=== PATIENT | male | born 1995 | race Caucasian/White ===

== ENCOUNTER 2018-05-09 12:55 | Emergency (ER) | payer OTHER, BC ==
--- NOTE | 2018-05-09 13:19 | ER Document Report ---
ED Medical Screen (RME) - General Chief Complaint: Heat Exposure Stated Complaint: HEAT EXHAUSTION Time Seen by Provider: 05/09/18 13:12 Notes: RAPID MEDICAL EVALUATION DISCLOSURE I have seen this patient as part of a Rapid Medical Evaluation and, if applicable, placed any initially appropriate orders. The patient will be seen and fully evaluated, including a full history and physical exam, by a provider ( in Main ED or Fast Track) when a room becomes available. 22-year-old male here with complaints of lightheadedness, extremity cramping, nausea, and "vision going out" that started about an hour ago. He had been outside trimming the [facility] with a weed [place] when he started to have these symptoms. He became very lightheaded and his vision started to go out on him and he felt like he was going to pass out so he laid down and states that he did not end up completely passing out. He has been trying to drink water all day. He has not yet urinated today and cannot tell me if his urine is an abnormal color. Currently, he feels normal. He received Zofran via EMS. EXAM CTAB RRR TRAVEL OUTSIDE OF THE [place] IN LAST 30 DAYS: No - Related Data Allergies/Adverse Reactions: No Known Allergies Allergy (Unverified 05/09/18 12:56) Past Medical History - Social History Chew tobacco use (# tins/day): - 5 Frequency of alcohol use: Every night Drug Abuse: None Renal/ Medical History: Denies: Hx Peritoneal Dialysis Physical Exam - Vital signs Vitals: Temp Pulse Resp BP Pulse Ox 98.0 F 70 20 103/84 100 05/09/18 13:03 05/09/18 13:03 05/09/18 13:05/09/18 13:03 05/09/18 13:03 Course - Vital Signs Vital signs: Temp Pulse Resp BP Pulse Ox 98.0 F 70 20 103/84 100 05/09/18 13:03 05/09/18 13:03 05/09/18 13:03 05/09/18 13:03 05/09/18 13:03
[2018-05-09 13:49] LABS: ABSOLUTE BASOPHILS # (AUTO) 0.1 10^3/uL (0.0-0.2); ABSOLUTE LYMPHOCYTES (AUTO) 2.2 10^3/uL (0.5-4.7); ABSOLUTE MONOCYTES (AUTO) 0.6 10^3/uL (0.1-1.4); BASOPHILS % (AUTO) 0.5 % (0-2); EOSINOPHILS % (AUTO) 0.4 % (0-6); HEMOGLOBIN 15.7 g/dL (13.5-17.0); LYMPHOCYTES % (AUTO) 20.4 % (13-45); MEAN CORPUSCULAR HGB CONC 34.2 g/dL (32.0-36.0); MEAN CORPUSCULAR VOLUME 91 fl (80-97); MONOCYTES % (AUTO) 5.7 % (3-13); PLATELET COUNT 264 10^3/uL (150-450); RED BLOOD COUNT 5.07 10^6/uL (4.35-5.55); RED CELL DISTRIBUTION WIDTH 13.2 % (11.5-14.0); TOTAL CELLS COUNTED % (AUTO) 100 %
[2018-05-09 13:58] LABS: APPEARANCE,URINE CLEAR; BILIRUBIN,URINE NEGATIVE (NEGATIVE); COLOR,URINE YELLOW; GLUCOSE, URINE NEGATIVE (NEGATIVE); KETONES,URINE NEGATIVE (NEGATIVE); LEUKOCYTE ESTERASE,URINE NEGATIVE (NEGATIVE); NITRITE,URINE NEGATIVE (NEGATIVE); PROTEIN,URINE NEGATIVE (NEGATIVE); URINE SPECIFIC GRAVITY 1.004; UROBILINOGEN,URINE NEGATIVE mg/dL (<2.0)
[2018-05-09 14:15] LABS: ALANINE AMINOTRANSFERASE 24 U/L (21-72); ALBUMIN 5.3 g/dL (3.5-5.0); ALKALINE PHOSPHATASE 89 U/L (38-126); ANION GAP 14 (5-19); ASPARTATE AMINO TRANSFERASE 31 U/L (17-59); BILIRUBIN,DIRECT 0.4 mg/dL (0.0-0.4); BLOOD UREA NITROGEN 13 mg/dL (7-20); CALCIUM 10.5 mg/dL (8.4-10.2); CARBON DIOXIDE 28 mmol/L (22-30); CHLORIDE 96 mmol/L (98-107); CREATINE KINASE 431 U/L (55-170); GLUCOSE 95 mg/dL (75-110); PHOSPHORUS 2.4 mg/dL (2.5-4.5); POTASSIUM 3.6 mmol/L (3.6-5.0); SODIUM 138.2 mmol/L (137-145); TOTAL PROTEIN 8.3 g/dL (6.3-8.2)
[2018-05-09] MEDS ORDERED: NORMAL SALINE 1000 ML 1,000 ML IV ONE (14:30)
--- NOTE | 2018-05-09 14:34 | ER Document Report ---
ED Heat Exposure - General Chief Complaint: Heat Exposure Stated Complaint: HEAT EXHAUSTION Time Seen by Provider: 05/09/18 13:12 Mode of Arrival: Medic Information source: Patient TRAVEL OUTSIDE OF THE [place] IN LAST 30 DAYS: No - HPI Patient complains to provider of: "I think I had heat exhaustion" Onset: Just prior to arrival Notes: Patient is here with complaints of feeling like he may have had heat exhaustion. The patient works outside doing [employer]. He states that he was working outside for about 4 hours today. He started to feel like he was going to pass out. He states that his vision got dark, but he never actually had a syncopal episode. When he started to feel like he was going to pass out, he laid down. He states that he felt numb everywhere and his muscles were cramping up. States that he now has some muscle pain in his arms. He denies taking any daily medications. He denies fever. He denies any chest pain or shortness of breath. He denies any blurred or loss vision. No headache. No unilateral numbness, tingling, weakness. He is not on blood thinning medications. He denies any drug use. He drinks approximately 3 beers a day. He denies any change in his urine. No dysuria or hematuria. No rash. He states that right now he feels significantly better and is actually ready to go home. His only complaint now is that his arms are sore. Nothing seems to make his symptoms better or worse. He denies any other complaints at this time. Patient denies any recent long trips or surgeries, leg swelling, history of DVT or PE, cancer. - Related Data Allergies/Adverse Reactions: No Known Allergies Allergy (Unverified 05/09/18 12:56) Past Medical History - Social History Smoking Status: Current Every Day Smoker Chew tobacco use (# tins/day): - 5 Frequency of alcohol use: Every night Drug Abuse: None Family History: Reviewed & Not Pertinent Patient has suicidal ideation: No Patient has homicidal ideation: No Renal/ Medical History: Denies: Hx Peritoneal Dialysis Review of Systems - Review of Systems -: Yes All other systems reviewed and negative Physical Exam - Vital signs Vitals: Temp Pulse Resp BP Pulse Ox 98.0 F 70 20 103/84 100 05/09/18 13:03 05/09/18 13:03 05/09/18 13:03 05/09/18 13:03 05/09/18 13:03 - Notes Notes: GENERAL: alert, cooperative, nontoxic, no distress. HEAD: normocephalic, atraumatic EYES: conjunctiva pink without discharge, no external redness or swelling. Pupils are equal, round, reactive to light. EARS: no external swelling, no external redness NOSE: atraumatic, no external swelling MOUTH/THROAT: mucous membranes moist and pink, posterior pharynx without erythema, swelling, exudate. No trismus or drooling. NECK: soft, supple, full range of motion, no meningismus. CHEST: no distress, lungs clear and equal throughout. No wheezing, rales, rhonchi. CARDIAC: regular rate and rhythm, no murmur, normal capillary refill, normal pulses. No peripheral edema noted. BACK: full range of motion, no CVA tenderness. EXTREMITIES: full range of motion of all extremities. No redness, no swelling. NEURO: alert and oriented x 3, cranial nerves II through XII are grossly intact. Upper and lower extremities are equal throughout. Normal sensation. No focal deficits, full range of motion of all extremities. normal finger to nose. PYSCH: appropriate mood, affect. Patient is cooperative. SKIN: pink, warm, dry, no rash. Course - Re-evaluation Re-evalutation: 05/09/18 15:57 Patient is nontoxic-appearing with stable vitals. Is a healthy 22-year-old male who works outside. He was working outside today he started to feel like he was going to pass out. He states that everything went numb and his arms were cramping. He denies any recent nausea vomiting or diarrhea. During this episode, he does report that he felt nauseous and dry heaves but did not actually vomit. He had no actual syncope. No chest pain or shortness of breath. He has no PE risk factors. He is PERC rule negative for pulmonary embolism, therefore no further provocative testing is needed at this time. His vitals remained stable. He states that he is feeling significantly better at this time. His lab work shows a elevated CK of 431. Urine shows no signs of infection or significant dehydration. Renal function is normal. Remainder of his labs are unremarkable for significant abnormalities. Patient was given a liter of normal saline states that he is feeling better after this. This point patient appears safe for discharge but he was instructed to follow-up in the next 48 hours for a recheck of his CK and renal function to ensure that things are improved. He was also instructed to return the emergency department immediately if he notices his urine getting significantly darker, severe cramping, persistent vomiting, fever, syncope, or for any further concerns. His EKG shows no acute findings. Patient will be discharged home. The patient's emergency department workup and current diagnosis were explained to the patient and or family. Follow-up instructions were provided. Medications if prescribed were discussed. Instructions for when to return to the emergency department including specific worrisome symptoms were discussed with the patient and/or family. - Vital Signs Vital signs: Temp Pulse Resp BP Pulse Ox 98.0 F 76 20 107/58 L 100 05/09/18 13:03 05/09/18 14:46 05/09/18 13:03 05/09/18 14:46 05/09/18 13:03 - Laboratory Result Diagrams: 05/09/18 13:32 05/09/18 13:32 Laboratory results interpreted by me: 05/09/18 05/09/18 13:32 13:32 WBC 11.0 H Chloride 96 L Calcium 10.5 H Phosphorus 2.4 L Creatine Kinase 431 H Total Protein 8.3 H Albumin 5.3 H - EKG Interpretation by Hi EKG shows normal: Sinus rhythm, [place], Intervals, QRS Complexes, ST-T Waves Rate: Normal When compared to previous EKG there are: Previous EKG unavailable Discharge - Discharge Clinical Impression: Elevated CK Heat exhaustion Qualifiers: Encounter type: initial encounter Qualified Code(s): T67.5XXA - Heat exhaustion , unspecified, initial encounter Condition: Stable Disposition: HOME, SELF-CARE Instructions: Dehydration ([facility]), Heat Exhaustion ([facility]) Additional Instructions: Drink lots of water. Maintain good hydration. Follow-up in 48-72 hours to have your labs rechecked to ensure that your CK level has improved and that your kidney function remains normal. Follow-up sooner for increasing pain, fever, dark urine, persistent vomiting, chest pain or shortness of breath or for any further concerns. Forms: Smoking Cessation Education Referrals: [facility] [Provider Group] - Follow up as needed
[2018-05-09 16:10] VITALS: BP 110/72
--- NOTE | 2018-05-10 00:23 | EKG REPORT ---
SEVERITY:- NORMAL ECG - SINUS RHYTHM : Confirmed by: Lashon Boyce MD 10-May-2018 00:22:30
== END 2018-05-09 16:10 | disposition home or self-care (01) ==
LOC: ER 12:55
DX: T67.5XXA Heat exhaustion, unspecified, initial encounter (principal); R94.4 Abnormal results of kidney function studies; X30.XXXA Exposure to excessive natural heat, initial encounter; Y93.H2 Activity, gardening and landscaping; Y99.0 Civilian activity done for income or pay; F17.200 Nicotine dependence, unspecified, uncomplicated
CPT/HCPCS: 93005; 99284; 96360; 36415; 82550; 83735; 84100; 85025; 80053; 81001; 93010; J7030